=== PATIENT | male | born 1965 | race Caucasian/White ===

== ENCOUNTER → 2023-03-02 | Outpatient (CLI) | payer OTHER, SELFPAY ==
--- NOTE | 2023-03-02 13:55 | ECHOD_ITS ---
Reason For Study: CORONARY ARTERY DISEASE Procedure This was a 2D Doppler, Color Flow transthoracic echocardiogram. PATIENT DENIED DEFINITY. The study was technically difficult. Exam performed in department. Left Ventricle Normal LV size. Left ventricular systolic function is normal. The estimated ejection fraction is 60 %. No regional wall motion abnormalities noted. Right Ventricle Normal RV size. Normal systolic function. Atria Normal left atrium. Normal right atrium. Mitral Valve Normal mitral valve. Tricuspid Valve Normal tricuspid valve. Aortic Valve Trisinus/trileaflet aortic valve. Pulmonic Valve The pulmonic valve is not well visualized. Great Vessels Mildly dilated aortic root. The pulmonary artery is normal size. Normal inferior vena cava. Pericardium/Pleural No pericardial effusion. MMode/2D Measurements & Calculations RVDd: 3.3 cm LVOT diam: 2.1 cm Ao root diam: 3.8 cm LVOT area: 3.5 cm2 LAV(MOD-bp): 34.3 ml SV(MOD-sp4): 35.5 ml LVAd ap4: 24.2 cm2 LAV(MOD-bp) Indexed: 14.0 ml/m2 LVLd ap4: 7.3 cm LAV(MOD-sp2): 43.4 ml EDV(MOD-sp4): 64.8 ml LAV(MOD-sp4): 28.4 ml EDV(sp4-el): 68.1 ml LVAs ap4: 14.9 cm2 LVLs ap4: 6.5 cm ESV(MOD-sp4): 29.3 ml ESV(sp4-el): 28.9 ml EF(MOD-sp4): 54.7 % EF(sp4-el): 57.5 % SV(sp4-el): 39.2 ml LA A4 area: 13.0 cm2 LA dimension(2D): 3.3 cm TAPSE: 1.5 cm RA A4 area: 10.5 cm2 Time Measurements MV dec time: 0.23 sec Doppler Measurements & Calculations MV E max vernon: 102.6 cm/sec Lat Peak E' Vernon: 10.9 cm/sec Med Peak E' Vernon: 9.1 cm/sec MV A max vernon: 62.8 cm/sec E/E' lat: 9.4 E/E' med: 11.3 MV E/A: 1.6 MV dec slope: 448.6 cm/sec2 Ao V2 max: 131.1 cm/sec LV V1 max: 112.8 cm/sec Ao max P.9 mmHg LV V1 max P.1 mmHg Ao V2 mean: 86.3 cm/sec LV V1 mean P.5 mmHg Ao mean P.5 mmHg LV V1 mean: 73.3 cm/sec Ao V2 VTI: 27.3 cm LV V1 VTI: 22.0 cm AV (velocity ratio): 0.81 ELVIE(I,D): 2.8 cm2 ELVIE(V,D): 3.0 cm2 SV(LVOT): 77.6 ml PA V2 max: 108.8 cm/sec PA max PG (full): 3.0 mmHg ECHO/Echo Complete Interpretation Summary Normal LV size. Left ventricular systolic function is normal. Normal RV size. The estimated ejection fraction is 60 %. Mildly dilated aortic root. Ordering Physician: Benedict Geller Referring Physician: Benedict Geller Performed By: Emperatriz Levy RDCS
== END | disposition home or self-care (01) ==
PROVIDERS: Referring Provider Internal Medicine Cardiovascular Disease; Visit Provider Internal Medicine Cardiovascular Disease
DX: I10 Essential (primary) hypertension (principal); Z95.1 Presence of aortocoronary bypass graft
CPT/HCPCS: 93306

== ENCOUNTER → 2023-05-09 | Outpatient (CLI) | payer OTHER, SELFPAY ==
--- NOTE | 2023-05-09 17:12 | RAD_ITS ---
STUDY: X-RAY CHEST REASON FOR EXAM: Male, 57 years old. Fever and cough TECHNIQUE: 2 PA and lateral views of the chest. COMPARISON: None. FINDINGS: Lungs are mildly hyperexpanded with chronic interstitial changes but no superimposed acute pulmonary process. There is no demonstrated pleural abnormality. Sternal cerclage wires and vascular clips are present from a prior sternotomy and coronary artery bypass graft procedure (CABG). Normal mediastinum and osei. Normal visualized pulmonary arteries. Normal visualized aortic arch and descending thoracic aorta. Normal visualized thoracic spine. Normal visualized ribs, clavicles, and shoulders. There is no demonstrated abnormality of the visualized soft tissue structures of the upper abdomen. RAD/Chest PA and Lateral IMPRESSION: Chronic interstitial changes, no superimposed acute pulmonary process Electronically Signed: Chago Livingston MD at 8:49 EST ,
--- OUTSIDE RECORDS SUMMARY | 2023-05-09 17:28 | XMS RPT_ITS | CCD ---
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 Name Role Phone Ajith Lofton DO Primary Care Provider UnavailPEG Garcias Referring Unavailable AJITH LOFTON Primary Care Unavailable PEG REYES Attending Unavailable AJITH LOFTON Primary Care Unavailable PHYSICIAN, NONE Primary Care Physician Unavailab OVIDIO Garcia DO Attending Unavailable PHYSICIAN, NONE Primary Care Unavailable DR REGIS FALCON DO Attending Unavailable PHYSICIAN, NONE Primary Care Unavailable Medications Current Medications Medication Drug Class(es) Dates Sig (Normalized) Sig (Original) amoxicillin 875 mg / clavulanate 125 mg oral tablet (1 source) Penicillin-class Antibacterial Start: 04-15-2023 End: 04-25-2023 take 1 tablet by mouth every twelve hours amoxicillin-clav ulanate 875 mg-125 mg oral tablet 1 tab(s), Oral, q12h, Take with a probiotic, X 10 day(s), # 20 tab(s), 0 Refill(s), 04/25/23 3:48:00 PM EST, 132.8 Start Date: 04/15/23 Stop Date: 04/25/23 Status: Ordered aspirin 81 mg delayed release oral tablet (3 sources) Platelet Aggregation Inhibitor, Nonsteroidal Anti-inflammatory Drug Start: 03-29-2023 take 1 tablet by mouth once daily Aspirin Low Dose 81 MG EC tablet Take 81 mg by mouth daily. 0 03/29/2023 Active Problems Problem Classification Problem Date Documented Date Episodic/Chronic Abdominal pain (2 sources) Abdominal pain 12-06-2019 Episodic Anxiety disorders (2 sources) Panic 05-05-2016 Chronic Cardiac dysrhythmias (4 sources) Bradycardia; Translations: [Sinus bradycardia] 12-06-2019 Episodic Coronary atherosclerosis and other heart disease (2 sources) Coronary arteriosclerosis 06-04-2019 Chronic Mood disorders (2 sources) Depressive disorder 06-04-2019 Chronic Nonspecific chest pain (3 sources) Right sided chest pain; Translations: [Other chest pain] Onset: 04-13-2023 04-13-2023 Episodic Other circulatory disease (2 sources) Borderline blood pressure 05-05-2016 Episodic Other lower respiratory disease (2 sources) Dyspnea 12-06-2019 Episodic Residual codes; unclassified (2 sources) Obstructive sleep apnea syndrome 06-04-2019 Chronic Results Test Name Value Interpretation Reference Range Facil ity Vital Signs Date Time Vital Sign Value Performing Clinician Faci lity 04-15-2023 15:58-0500 Diastolic Blood Pressure Non-Invasive 82 mm[Hg] DR REGIS FALCON DO [facility] 04-15-2023 15:58-0500 Heart rate 70 /min DR REGIS FALCON DO [facility] 04-15-2023 15:58-0500 Respiratory rate 16 /min DR REGIS FALCON DO [facility] 04-15-2023 15:58-0500 Systolic Blood Pressure Non-Invasive 138 mm[Hg] DR REGIS FALCON DO [facility] 04-15-2023 12:57-0500 Body temperature 97.34 [degF] DR REGIS FALCON DO [facility] 04-15-2023 12:57-0500 Body weight 132.[address] REGIS FALCON DO [facility] 04-15-2023 12:57-0500 Diastolic Blood Pressure Non-Invasive 87 mm[Hg] DR REGIS FALCON DO [facility] 04-15-2023 12:57-0500 Heart rate 73 /min DR REGIS FALCON DO [facility] 04-15-2023 12:57-0500 Respiratory rate 16 /min DR REGIS FALCON DO [facility] 04-15-2023 12:57-0500 Systolic Blood Pressure Non-Invasive 144 mm[Hg] DR REGIS FALCON DO [facility] 04-14-2023 15:24-0500 Body height 177.8 cm OVIDIO REICHFIELD DO [facility] 04-14-2023 15:24-0500 Body temperature 98.24 [degF] OVIDIO REICHFIELD DO [facility] 04-14-2023 15:24-0500 Body weight 129.5 kg OVIDIO REICHFIELD DO [facility] 04-14-2023 15:24-0500 Diastolic Blood Pressure Non-Invasive 95 mm[Hg] OVIDIO REICHFIELD DO [facility] 04-14-2023 15:24-0500 Heart rate 78 /min OVIDIO REICHFIELD DO [facility] 04-14-2023 15:24-0500 Respiratory rate 18 /min OVIDIO REICHFIELD DO [facility] 04-14-2023 15:24-0500 Systolic Blood Pressure Non-Invasive 152 mm[Hg] OVIDIO REICHFIELD DO [facility] 04-13-2023 15:01-0500 Body temperature 97.11 [degF] Peg Reyes APRN - HISTOPATH TECH Work Phone: [facility] 04-13-2023 15:01-0500 Body weight 134.15 kg Peg Reyes APRN - HISTOPATH TECH Work Phone: [facility] 04-13-2023 15:01-0500 Diastolic blood pressure 80 mm[Hg] Peg Reyes SECOND SHIFT SUPERVISOR - HISTOPATH TECH Work Phone: [facility] 04-13-2023 15:01-0500 Heart rate 65 /min Peg Reyes SECOND SHIFT SUPERVISOR - HISTOPATH TECH Work Phone: [facility] 04-13-2023 15:01-0500 Respiratory rate 18 /min Peg Reyes SECOND SHIFT SUPERVISOR - HISTOPATH TECH Work Phone: [facility] 04-13-2023 15:01-0500 SaO2% (BldA) [Mass fraction] 95 % Peg Reyes SECOND SHIFT SUPERVISOR - HISTOPATH TECH Work Phone: [facility] 04-13-2023 15:01-0500 Systolic blood pressure 144 mm[Hg] Peg Reyes SECOND SHIFT SUPERVISOR - HISTOPATH TECH Work Phone: [facility] Encounters Encounter Date Encounter Type Care Provider Facility Start: 04-15-2023 End: 04-15-2023 Emergency department patient visit DR REGIS FALCON DO Facility:B Start: 04-15-2023 End: 04-15-2023 Emergency department patient visit DR REGIS FALCON DO [facility] Start: 04-14-2023 End: 04-14-2023 [facility] department [facility] Start: 04-14-2023 End: 04-14-2023 Emergency department patient visit OVIDIO [facility] DO [facility] Start: 04-13-2023 End: 04-13-[address] [facility] Start: 04-13-2023 End: 04-13-2023 Office outpatient new 30 minutes Peg Reyes SECOND SHIFT SUPERVISOR - HISTOPATH TECH Work Phone: [facility] Procedures Date Procedure Procedure Detail Performing Clinician Start: 04-13-2023 Radiologic exam chest 2 views Pegbrenda white APRN - HISTOPATH TECH Work Phone: Start: 12-13-2018 Electrocardiographic monitoring OVIDIO LIRIANO DO Plan of Treatment Date Care Activity Detail Author Start: 2024 RSV Immunization age d 60 or older (1 - 1-dose 60+ series) RSV Immunization aged 60 or older (1 - 1-dose 60+ series) [facility] Start: 2014 Zoster Vaccines (1 of 2) Zoster Vacc katarina (1 of 2) [facility] Start: 03-18-2009 MMR Vaccines (1 of 1 - Standard series) MMR Vaccines (1 of 1 - Standard series) [facility] Start: 08-09-1983 DTaP/Tdap/Td Vaccine s (1 - Tdap) DTaP/Tdap/Td Vaccines (1 - Tdap) [facility] Start: 1982 Hepatitis C screening Hepatitis C Sc reening [facility] Start: 1976 Depression Screening Depression Scre ening [facility] Start: 1964 Hepatitis B Vaccines (1 of 3 - 3-dose series) Hepatitis B Vaccines (1 of 3 - 3-dose series) [facility] Start: 1964 HIV screening HIV Screening [facility] Start: 1964 Lipid panel Lipid Panel [facility] Start: 1964 Screening for malign ant neoplasm of colon [facility] Payers Date Payer Category Payer Unknown [id number] 2023 Unknown [employer] EXCHANGE [id number] 2023-Present [address] [place] [address] Exchange Plan [id number] 2023 Unknown [id number] 1964 Unknown [id number] 1965 Unknown [id number] Social History Date Type Detail Facility Tobacco smoking stat [facility] Tobacco smoking consumption unknown [facility] Start: 1965 Sex Assigned At Not on file [facility] Gender identity Not on file [facility] Start: 06-04-2019 End: 04-15-2023 Tobacco smoking status Ex-smoker (finding) [facility] Sex Assigned At Male [facility] Functional Status Date Assessment Result Facility 04-15-2023 Functional Status Standard Safet y ID band on, Call device within reach, Bed in low position, Wheels locked, Upper/Half-Length side-rails up, Bedside Cart Locked, Safety level maintained [facility] Clinical Notes 04-13-2023 to 04-15-2023 Peg Reyes, SECOND SHIFT SUPERVISOR - HISTOPATH TECH - 04/13/2023 2:50 PM ESTPatient InstructionsAttachments Note Date & Type Note Facility 04-15-2023 Hospital Discharg e instructions Patient Education 04/15/2023 15:48:45 Pneumonia (Adult) Pneumonia (Adult) Pneumonia is an infection deep within the lungs. It is in the small air sacs (alveoli). Pneumonia may be caused by a virus or bacteria. Pneumonia caused by bacteria is usually treated with an antibiotic. Severe cases may need to be treated in the hospital. Milder cases can be treated at home. Symptoms usually start to get better during the first 2 days of treatment. Home care Follow these guidelines when caring for yourself at home: Rest at home for the first 2 to 3 days, or until you feel stronger. Don t let yourself get overly tired when you go back to your activities. Stay away from cigarette smoke yours or other people s. You may use acetaminophen or ibuprofen to control fever or pain, unless another medicine was prescribed. If you have chronic liver or kidney disease, talk with your healthcare provider before using these medicines. Also talk with your provider if you ve had a stomach ulcer or gastrointestinal bleeding. Don t give aspirin to anyone younger than 18 years of age who is ill with a fever. It may cause severe liver damage. Your appetite may be poor, so a light diet is fine. Drink 6 to 8 glasses of fluids every day to make sure you are getting enough fluids. Beverages can include water, sport drinks, sodas without caffeine, juices, tea, or soup. Fluids will help loosen secretions in the lung. This will make it easier for you to cough up the phlegm (sputum). If you also have heart or kidney disease, check with your healthcare provider before you drink extra fluids. Take antibiotic medicine prescribed until it is all gone, even if you are feeling better after a few days. Follow-up care Follow up with your healthcare provider in the next 2 to 3 days, or as advised. This is to be sure the medicine is helping you get better. If you are 65 or older, you should get a pneumococcal vaccine and a yearly flu (influenza) shot. You should also get these vaccines if you have chronic lung disease like asthma, emphysema, or COPD. Recently, a second type of pneumonia vaccine has become available for everyone over 65 years old. This is in addition to the previous vaccine. Ask your provider about this. When to seek medical advice Call your healthcare provider right away if any of these occur: You don t get better within the first 48 hours of treatment Shortness of breath gets worse Rapid breathing (more than 25 breaths per minute) Coughing up blood Chest pain gets worse with breathing Fever of 100.4 F (38 C) or higher that doesn t get better with fever medicine Weakness, dizziness, or fainting that gets worse Thirst or dry mouth that gets worse Sinus pain, headache, or a stiff neck Chest pain not caused by coughing 5422-6440 [employer]. [address] [place] [address], [place] [address]. All rights reserved. This information is not intended as a substitute for professional medical care. Always follow your healthcare professional's instructions. Follow Up Care 04/15/2023 13:05:18 With:Follow up with primary care provider Address:Unknown When:2-4 days [facility] 04-15-2023 Emergency department Discharge summary Discharge Instructions Thank you for allowing [facility] to assist you with your healthcare needs. The following is important discharge information regarding your hospital visit. Diagnosis from Today's Visit Chest pain - Pleuritic What to Do Next Instructions from Your Care Team No qualifying data available. Post Acute Orders No qualifying data available. You Need to Schedule the Following Appointments Follow Up with Follow up with primary care provider When Within 2-4 days Allergies NKA Medications Please ask your primary doctor or pharmacist before taking any other medication not listed, including over the counter drugs, herbal medications, vitamins and or supplements as they may interact with your home medications. What How Much When Instructions Last Dose New amoxicillin-clavulanate (amoxicillin-clavulanate 875 mg-125 mg oral tablet) 1 tab(s) by mouth Every 12 hours Duration: 10 Days Take with a probiotic Printed Prescription Unchanged aspirin (aspirin 81 mg oral capsule) by mouth Every 4 hours Unchanged diazePAM (diazePAM 5 mg oral tablet) 1 tab(s) by mouth Four (4) times a day as needed for for anxiety Unchanged rosuvastatin (rosuvastatin 20 mg oral tablet) 1 tab(s) by mouth Once a day Please take this list to your next doctor s visit. Bring all medications you take, including over the counter medications, herbals and other supplements with you to your doctor s visit. Patients and families are reminded to discard old lists and to update any records with all medication providers or retail pharmacies. Education Materials Pneumonia (Adult) Pneumonia is an infection deep within the lungs. It is in the small air sacs (alveoli). Pneumonia may be caused by a virus or bacteria. Pneumonia caused by bacteria is usually treated with an antibiotic. Severe cases may need to be treated in the hospital. Milder cases can be treated at home. Symptoms usually start to get better during the first 2 days of treatment. Home care Follow these guidelines when caring for yourself at home: Rest at home for the first 2 to 3 days, or until you feel stronger. Don t let yourself get overly tired when you go back to your activities. Stay away from cigarette smoke yours or other people s. You may use acetaminophen or ibuprofen to control fever or pain, unless another medicine was prescribed. If you have chronic liver or kidney disease, talk with your healthcare provider before using these medicines. Also talk with your provider if you ve had a stomach ulcer or gastrointestinal bleeding. Don t give aspirin to anyone younger than 18 years of age who is ill with a fever. It may cause severe liver damage. Your appetite may be poor, so a light diet is fine. Drink 6 to 8 glasses of fluids every day to make sure you are getting enough fluids. Beverages can include water, sport drinks, sodas without caffeine, juices, tea, or soup. Fluids will help loosen secretions in the lung. This will make it easier for you to cough up the phlegm (sputum). If you also have heart or kidney disease, check with your healthcare provider before you drink extra fluids. Take antibiotic medicine prescribed until it is all gone, even if you are feeling better after a few days. Follow-up care Follow up with your healthcare provider in the next 2 to 3 days, or as advised. This is to be sure the medicine is helping you get better. If you are 65 or older, you should get a pneumococcal vaccine and a yearly flu (influenza) shot. You should also get these vaccines if you have chronic lung disease like asthma, emphysema, or COPD. Recently, a second type of pneumonia vaccine has become available for everyone over 65 years old. This is in addition to the previous vaccine. Ask your provider about this. When to seek medical advice Call your healthcare provider right away if any of these occur: You don t get better within the first 48 hours of treatment Shortness of breath gets worse Rapid breathing (more than 25 breaths per minute) Coughing up blood Chest pain gets worse with breathing Fever of 100.4 F (38 C) or higher that doesn t get better with fever medicine Weakness, dizziness, or fainting that gets worse Thirst or dry mouth that gets worse Sinus pain, headache, or a stiff neck Chest pain not caused by coughing 2812-2545 [employer]. [address] [place] [address]. All rights reserved. This information is not intended as a substitute for professional medical care. Always follow your healthcare professional's instructions. Additional Information VACCINATE! IT SAVES LIVES! Members of the community who have not yet received the COVID-19 vaccine and would like to receive it can visit one of [facility] vaccine clinics. There are many vaccine clinic locations within the [facility]. For locations and available times, please visit [email or web address].[email or web address] [email or web address] It is important to note that some COVID mobile vaccine clinics are held outdoors and may be canceled in rainy or stormy conditions. To learn more about pediatric vaccinations (ages 5-11), we invite you to visit the [facility] webpage. https://www.[email or web address].org/p ages/9078-Cadoi-Tgmgbmkhtiz-Freq ccvfyx-Vckdh-Hpgidiong.html To learn more about the COVID-19 vaccine, we invite you to visit the CDC website for a list of frequently asked questions. https://www.cdc.gov/coronavirus/ 2019-ncov/vaccines/faq.html [facility] Patient Portal Access Instructions: Stay connected with your healthcare team and access your personal medical information anytime with the [facility] Patient Portal. If you would like a full copy of your medical records please contact the [facility] Medical Records Department Tuesday through Tuesday between 8a.m. and 4:30p.m. Please follow the directions below to access the portal: 1.Access the email account you provided upon registration to the [facility].2.Look for an invitation email from [facility].3.Open the email and access the invitation link: Accept Invitation to [facility].Fill in the required owen to create your account. Sign into [email or web address] with your username and password that you created in the above steps to stay up to date. You can then view a summary of results, a summary of your visits, and the ability to download your summaries to your computer or send the information securely to a physician. Remember that your healthcare information is confidential, so carefully consider who you will allow to register on the [facility] Patient Portal for access to your information. You can also access the [facility] Patient Portal on the [employer] josep. Simply click on Health Records under Health Data and then click on the [employer] logo. HOW TO SAFELY DISPOSE OF PRESCRIPTION MEDICATIONS Please use one of the following methods to safely dispose of your unused medications. 1.Use a drug disposal kit: the drug disposal pouch allows you to safely discard your old and unused drugs. Ask your nurse to give you one when you are discharged.2.Visit a local take-back location: Many local pharmacies and police departments have programs that collect old and unwanted prescription drugs. Call your local pharmacy or go to http://[employer]/9H1Rx5t to find one close to you.3.Make use of household items: Use cat litter or old coffee grounds to dispose medications if other options are not available. Mix your drugs with these household products, seal them in an airtight container and throw it into the garbage. Call [facility]: [phone] to be sure your drugs can be disposed of in this way. Some medicines may require a different approach.4.Never flush your medications down the toilet. IF YOU HAVE BEEN PRESCRIBED AN OPIOIDS FOR PAIN If you have been prescribed an opioid (such as hydrocodone, oxycodone or morphine), it is critical to understand the possible side effects and risks of opioid pain medications. Even when taken as directed, opioids can have several side effects including: Tolerance, meaning you might need to take more of a medication for the same pain relief. Nausea, vomiting and/or constipation. Sleepiness, dizziness, dry mouth, confusion, depression or itching. Physical dependence, meaning you have withdrawal symptoms when a medication is stopped ? this can develop within a few days. KNOW YOUR RESPONSIBILITIES It is important to know exactly how much and how often to take the opioid pain medications you are prescribed. Never take opioids in higher amounts or more often than prescribed. Do not combine opioids with alcohol or other drugs that cause drowsiness, such as benzodiazepines, also known as benzos, including diazepam and alprazolam, muscle relaxants or sleep aids. Never sell or share prescription opioids. This is illegal. Store opioids in a secure place and out of reach of others (including children, family, friends and visitors). The last page(s) of this document has been signed and retained as a CHART COPY Signatures Patient Education Materials Pneumonia (Adult) Medication Leaflets My discharge plan and instructions have been reviewed and explained to me and I,MAT QUIROZ understand my current condition and have read and understand these discharge instructions. I have received a written copy of the plan/instructions. If I have questions, I am aware that I should contact my doctor. Patient/Billet Cutter Signature: Date/Time: Relationship to Patient: Witness Name/Signature: Date/Time: [facility] 04-15-2023 Note Sinus rhythm Inferior infarct, old Lateral leads are also involved Baseline wander in lead(s) V4 Electronic Signature: REGIS FALCON DO 04/15/2023 15:22:50 [facility] 04-15-2023 Note ORIGINAL EXAMINATION: TWO XRAY VIEWS OF THE CHEST04/15/2023 2:53 pm COMPARISON: None HISTORY: ORDERING SYSTEM PROVIDED HISTORY: Reason for Exam: Chest Pain FINDINGS: The heart size is normal. Nonspecific peripheral consolidations seen in the central right lung. There is likely a background of COPD. No pneumothorax or pleural effusion. No aggressive osseous lesions identified.Degenerative changes seen of the spine. Prominent costochondral calcifications visualized. Sternotomy wires appear intact. IMPRESSION: Nonspecific peripheral consolidations in the right lung. Correlate for signs of pneumonia. Follow-up to resolution necessary to exclude neoplastic disease Background of COPD/emphysema Interpreted by: Anthony Zheng MD Preliminary Report By: Anthony Zheng MD Electronically signed By Anthony Zheng MD Dictated Date: 04/15/2023 2:59:41 PM Prelim Date: 04/15/2023 3:00:54 PM Sign Date: 04/15/2023 3:00:54 PM Ordering Provider: REGIS FALCON [facility] 04-13-2023 Note It is recommended th at you present in the emergency room for further evaluation. [facility] 04-13-2023 History of Presen t illness Narrative Images from the original note were not included. [facility] [address] [place] [id number] Dept: [phone] Dept Loc: [phone] Subjective Mat Quiroz is a 57 y.o. year old who presents to the office with the following complaint(s): Chief Complaint Patient presents with Pain Pt stated that two nights ago they woke up in the middle of the night with chest pain and painful breathing, and they said that they were struggling to catch their breath. Pt said that now they still have a lot of pain in their rt lower chest while taking a deep breath. Subjective HPI: A 57-year-old male comes in with right-sided lower chest pain particularly when he takes a deep breath. Patient states 2 nights ago when he woke up, he felt some discomfort in this region and felt tightness with breathing. Patient states the following day from this episode, he felt fine and was able to walk with no issues including shortness of breath. He denied any type of chest pain, left arm tingling or weakness. Patient states last night he did have some coughing episodes which were dry and unproductive. Patient states that he does have chronic congestion which she utilizes Sudafed and NyQuil for. Patient states that showering it does help him breathe easier. He has a history of pneumonia and pleurisy. Denies fever, chills, current SOB or CP. Patient states that he does have a pulse ox that he has utilized over the last 2 days and number has been in the high 90s Review of Systems Constitutional: Negative for activity change, appetite change, chills and fever. Respiratory: Positive for cough and shortness of breath. Negative for chest tightness and wheezing. Cardiovascular: Negative for palpitations. No Known Allergies Current Outpatient Medications on File Prior to Visit Medication Sig Dispense Refill Aspirin Low Dose 81 MG EC tablet Take 81 mg by mouth daily. diazePAM (Valium) 5 MG tablet Take 5 mg by mouth daily as needed. escitalopram (Lexapro) 10 MG tablet lisinopril 20 MG tablet Take 20 mg by mouth daily. rosuvastatin (Crestor) 20 MG tablet No current facility-administered medications on file prior to visit. There is no problem list on file for this patient. Social History Tobacco Use Smoking status: Not on file Smokeless tobacco: Not on file Substance Use Topics Alcohol use: Not on file Objective Objective BP (!) 144/80 Pulse 65 Temp 36.2 C (97.1 F) Resp 18 Wt 295 lb 12 oz (134 kg) SpO2 95% Physical Exam Vitals and nursing note reviewed. Constitutional: General: He is awake. He is not in acute distress. Appearance: Normal appearance. He is not ill-appearing, toxic-appearing or diaphoretic. HENT: Head: Normocephalic and atraumatic. Eyes: Conjunctiva/sclera: Conjunctivae normal. Cardiovascular: Rate and Rhythm: Normal rate and regular rhythm. Heart sounds: Normal heart sounds. No murmur heard. No gallop. Pulmonary: Effort: Pulmonary effort is normal. No respiratory distress. Breath sounds: Normal breath sounds. No stridor. No wheezing, rhonchi or rales. Musculoskeletal: General: Normal range of motion. Cervical back: Normal range of motion and neck supple. Skin: General: Skin is warm. Neurological: General: No focal deficit present. Mental Status: He is alert and oriented to person, place, and time. Psychiatric: Mood and Affect: Mood normal. Behavior: Behavior is cooperative. Assessment/Plan 1. Intermittent right-sided chest pain - XR chest 2 views Patient was informed that radiologist reading stated no consolidation. He was informed that I still felt that x-ray looked abnormal and would prefer him to have further evaluation in the emergency room with blood work and CT of the chest. Patient was informed that this would be at the discretion of the ER physician but due to his past medical history as well as the way his symptoms have presented, felt that I could not recommend that he have close follow-up with his PCP within the week. [place] that additional evaluation would be warranted sooner in the emergency room. Patient states agreement and explains [place] so he is close to his family. [place] it reasonable for patient to drive himself there now. Patient left in stable condition with stable vital signs. Patient given educational materials - see patient instructions. Discussed use, benefit, and side effects of prescribed medications. All patient questions answered. Pt voiced understanding and agrees with treatmentplan.Follow up as directed. Myesha was used to dictate this note. MIKE Bean NP 04/13/2023 4:06 PM documented in this encounter [facility] 04-13-2023 Instructions MIKE Bean NP - 04/13/2023 2:50 PM EST It is recommended that you present in the emergency room for further evaluation. The following attachments cannot be sent through Care Everywhere.Chest Pain Discharge Instructions ([place])documented in this encounter [facility] Evaluation + Plan note No data available for this section [facility] documented in this encounter [facility] Discharge instructions No data available for this section [facility] Progress note No data available for this section [facility] Summary Purpose Family History No Family History Records FoundNo Family History Records Found No data available for this section No data available for this section No Family History Records Found Advance Directives No Advanced Directives Records FoundNo Advanced Directives Records FoundNo Advanced Directives Records Found Additional Source Comments (unrecognized sect ion and content) No Status Records FoundNo Status Records FoundNo Status Records Found INFORMATION SOURCE (unrecogn ized section and content) DATE CREATED AUTHOR AUTHOR'S ORGANIZ ATION 04/15/2023 [facility] DATE CREATED AUTHOR AUTHOR'S ORGANIZ ATION 04/26/2023 [facility] ([place]) Reason for Visit (unrecogniz ed section and content) Care Teams (unrecognized sec tion and content) FOR RECORDS PERTAINING TO PATIENTS WHO ARE OR HAVE BEEN ENROLLED IN A CHEMICAL DEPENDENCY/SUBSTANCEABUSE PROGRAM, SOME INFORMATION MAY BE OMITTED. This clinical summary was aggregated from multiple sources. Caution should be exercised in using it in the provision of clinical care. This summary normalizes information from multiple sources, and as a consequence, information in this document may materially change the coding, format and clinical context of patient data. In addition, data may be omitted in some cases. CLINICAL DECISIONS SHOULD BE BASED ON THE PRIMARY CLINICAL RECORDS. [employer] [facility]. provides no warranty or guarantee of the accuracy or completeness of information in this document.
== END | disposition home or self-care (01) ==
LOC: MTRAD 17:10
PROVIDERS: Referring Provider Nurse Practitioner Family; Visit Provider Nurse Practitioner Family
DX: J69.0 Pneumonitis due to inhalation of food and vomit (principal)
CPT/HCPCS: 71046

== ENCOUNTER → 2024-06-27 | Outpatient (CLI) | payer OTHER, SELFPAY ==
[2024-06-27 13:05] LABS: Hemoglobin A1c 5.6 % (<=5.6)
[2024-06-27 13:08] LABS: Absolute Lymphocyte Count 1.79 X10^3/uL (0.83-4.51); Absolute Neutrophil Count 2.9 X10^3/uL (2.0-7.7); Basophil# 0.04 X10^3/uL; Basophil% 0.7 % (0-1); Eosinophil# 0.09 X10^3/uL; Eosinophils% 1.7 % (0-5); Hematocrit 47.2 % (40-54); Hemoglobin 16.4 g/dL (13.0-16.5); Lymphocyte # 1.79 X10^3/ul (0.83-4.51); Lymphocyte % 33.3 % (19-41); Mean Corp Hgb Conc 34.7 g/dL (32-36); Mean Corpuscular Hgb 28.9 pg (27.0-32.0); Mean Corpuscular Volume 83.1 fL (80-94); Mean Platelet Vol. 9.9 fl (6.2-12.0); Monocyte# 0.53 X10^3/uL; Monocyte% 9.9 % (0-10); NRBC Flagged by Analyzer 0 % (0-5); Neutrophil # 2.92 X10^3/uL (2.7-7.7); Neutrophil % 54.2 % (47-70); Platelet Count 175 K/mm3 (150-450); RBC Distribution Width CV 13.2 % (11.6-14.6); RBC Distribution Width SD 40.1 fl (35.1-43.9); Red Blood Count 5.68 M/mm3 (4.6-6.2); White Blood Count 5.4 K/mm3 (4.4-11.0)
[2024-06-27 13:12] LABS: ALB/GLOB Ratio 1.1 RATIO (0.9-2.4); AST(SGOT) 56 U/L (<=37); Alanine Aminotransfer ALT/SGPT 40 U/L (<=46); Albumin, Serum 4.3 g/dL (3.5-5.0); Alkaline Phosphatase 64 U/L (40-129); Anion Gap 14 (5-15); BUN 9 mg/dL (4-19); BUN/Creat Ratio 8.9 RATIO (10-20); Calcium,Total 9.8 mg/dL (7.6-11.0); Carbon Dioxide 19.6 mmol/L (21.0-32.0); Chloride 99 mmol/L (98-108); Cholesterol 113 mg/dL (<=200); Creatinine, Serum 1.05 mg/dL (0.70-1.20); EST Glomerular Filtration Rate 82 (>60); Glucose 90 mg/dL (70-99); High Density Lipoprotein 34 mg/dL; Low Density Lipoprotein Calc. 58 mg/dL; Potassium 3.8 mmol/L (3.3-5.1); Protein, Total 8.2 g/dL (5.9-8.4); Sodium Level 133 mmol/L (133-145); Total Bilirubin 0.65 mg/dL (0.00-1.30); Triglycerides 102 mg/dL; Very Low Density Lipoprotein 20 mg/dL (5-40)
== END | disposition home or self-care (01) ==
LOC: VSLAB 11:51
PROVIDERS: PCP Nurse Practitioner Family
DX: I10 Essential (primary) hypertension (principal); Z13.220 Encounter for screening for lipoid disorders; Z13.1 Encounter for screening for diabetes mellitus
CPT/HCPCS: 36415; 80053; 80061; 83036; 84443; 85025